=== PATIENT | male | born 1985 | race American Indian/Alaskan Native ===

== ENCOUNTER 2022-06-28 15:47 | Emergency (ER) | payer SELFPAY ==
[2022-06-28 15:58] VITALS: BP 141/91
[2022-06-28] MEDS ORDERED: ALBUTEROL 2.5 MG/3 ML NEBU IH ONE (16:02)
[2022-06-28] MEDS ORDERED: predniSONE 20 MG TAB PO ONE (16:03)
--- NOTE | 2022-06-28 16:46 | XRay Report ---
CHEST 2 VIEWS INDICATION / CLINICAL INFORMATION: Asthma. COMPARISON: Chest radiographs 09/16/2015, 04/08/2014, 07/06/2010 FINDINGS: SUPPORT DEVICES: None. HEART / MEDIASTINUM: No significant abnormality. LUNGS / PLEURA: The lungs are prominently aerated with mild flattening of the diaphragms. No pneumoth orax. ADDITIONAL FINDINGS: No significant additional findings. IMPRESSION: 1. The lungs are prominently aerated with mild flattening of the diaphragm, possibly related to air t rapping in the setting of asthma. Signer Name: Luiz Khan MD Signed: 06/28/2022 4:42 PM Workstation Name: [id number]
--- NOTE | 2022-06-28 16:51 | Emergency Department Report ---
ED Asthma HPI - General Chief Complaint: Adult Asthma Stated Complaint: ASTHMA ATTACK Time Seen by Provider: 06/28/22 16:01 Source: patient Mode of arrival: Ambulatory Limitations: No Limitations - History of Present Illness Initial Comments: 36 YO COMES TO ER WITH WHEEZING. HAS ASTHMA AND IS OUT OF MEDS. NO FEVER OR CHILLS. NO PURULENT SPUTUM MD Complaint: "asthma attack" Asthma History: childhood onset Severity: mild Context: none known Associated Symptoms: none - Related Data Current Asthma Therapy: none Previous Rx's Medication Instructions Recorded Last Taken Type Albuterol Sulfate [Proair 90 mcg IH QID PRN #1 aer.[email or web address] 06/28/22 Unknown Rx Respiclick] predniSONE [Deltasone] 20 mg PO DAILY #5 tablet 06/28/22 Unknown Rx Allergies Allergy/AdvReac Type Severity Reaction Status Date / Time watermelon Allergy Itching Uncoded 06/28/22 16:01 ED Review of Systems ROS: Stated complaint: ASTHMA ATTACK Other details as noted in HPI Comment: All other systems reviewed and negative ED Past Medical Hx - Past Medical History Previous Medical History?: Yes Hx Asthma: Yes - Surgical History Past Surgical History?: No - Family History Family history: no significant - Social History Smoking Status: Current Every Day Smoker Substance Use Type: Alcohol, Marijuana - Medications Home Medications: Home Medications Medication Instructions Recorded Confirmed Last Taken Type Albuterol Sulfate [Proair 90 mcg IH QID PRN #1 aer.[email or web address] 06/28/22 Unknown Rx Respiclick] predniSONE [Deltasone] 20 mg PO DAILY #5 tablet 06/28/22 Unknown Rx ED Physical Exam - General Limitations: No Limitations General appearance: alert, in no apparent distress - Head Head exam: Present: atraumatic, normocephalic - Eye Eye exam: Present: normal appearance - ENT ENT exam: Present: mucous membranes moist - Neck Neck exam: Present: normal inspection - Respiratory Respiratory exam: Present: normal lung sounds bilaterally. Absent: respiratory distress - Cardiovascular Cardiovascular Exam: Present: regular rate, normal rhythm. Absent: systolic murmur, diastolic murmur, rubs, gallop - GI/Abdominal GI/Abdominal exam: Present: soft, normal bowel sounds - Rectal Rectal exam: Present: deferred - Extremities Exam Extremities exam: Present: normal inspection - Back Exam Back exam: Present: normal inspection - Neurological Exam Neurological exam: Present: alert, oriented X3 - Psychiatric Psychiatric exam: Present: normal affect, normal mood - Skin Skin exam: Present: warm, dry, intact, normal color. Absent: rash ED Course Vital Signs 06/28/22 15:56 Pulse Rate 89 Blood Pressure 141/91 [Right] O2 Sat by Pulse 91 Oximetry ED Medical Decision Making - Radiology Data Radiology results: report reviewed, image reviewed NAP - Medical Decision Making DUONEB AND PRED IN ER XRAY NAP DC HOME WITH DC PLAN OF CARE INCLUDING DIET, MEDS, ACTIVITY AND FOLLOW UP. PT VERBALIZES UNDERSTANDING OF PLAN OF CARE. Vital Signs 06/28/22 15:56 Pulse Rate 89 Blood Pressure 141/91 [Right] O2 Sat by Pulse 91 Oximetry - Differential Diagnosis ASTHMA Critical care attestation.: If time is entered above; I have spent that time in minutes in the direct care of this critically ill patient, excluding procedure time. ED Disposition Clinical Impression: Asthma with acute exacerbation Disposition: 01 HOME / SELF CARE / HOMELESS Is pt being admited?: No Does the pt Need Aspirin: No Condition: Stable Instructions: Asthma, Adult Additional Instructions: FOLLOW UP WITH PCP REFERRAL BELOW Prescriptions: predniSONE [Deltasone] 20 mg PO DAILY #5 tablet Albuterol Sulfate [Proair Respiclick] 90 mcg IH QID PRN #1 aer.pow.ba PRN Reason: Wheezing Referrals: JANIYA TAYLOR MD [Staff Physician] - 3-5 Days Forms: Work/School Release Form(ED) Time of Disposition: 16:50
== END 2022-06-28 17:50 | disposition home or self-care (01) ==
LOC: ED 15:47
DX: J45.901 Unspecified asthma with (acute) exacerbation (principal); F17.200 Nicotine dependence, unspecified, uncomplicated; F12.90 Cannabis use, unspecified, uncomplicated; Z72.89 Other problems related to lifestyle; Z91.018 Allergy to other foods; Z79.899 Other long term (current) drug therapy
CPT/HCPCS: 71046; 94640; 94644; 99283